=== PATIENT | female | born 1995 | race Caucasian/White ===

== ENCOUNTER 2021-07-14 10:26 | Emergency (ER) | payer OTHER ==
[2021-07-14 10:54] VITALS: BP 183/73; PULSE 93; RESP 24; TEMP 98.8
--- NOTE | 2021-07-14 11:03 | ED ---
URI HPI - General Chief Complaint: Upper Respiratory Infection Stated Complaint: SOB Time Seen by Provider: 07/14/21 10:56 Source: patient, RN notes reviewed Mode of arrival: ambulatory Limitations: no limitations - History of Present Illness Initial Comments: Patient is 26-year-old female presenting to the ED for cough and shortness of breath. Patient states that symptoms started with increased cough, congestion, fever and chills. Patient reports no nausea but vomiting with coughing spells. She has positive past medical history of asthma and normally is well controlled. 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 Patient reports not receiving COVID-19 vaccine, no reported COVID-19 positive test in the past. - Related Data Home Medications Medication Instructions Recorded Confirmed Albuterol Inhaler [Ventolin Hfa 2 puff INHALATION RT-Q6H PRN 07/14/21 07/14/21 Inhaler] Dextroamphetamine/Amphetamine 10 mg PO DAILY 07/14/21 07/14/21 [Adderall Xr] Fluticasone Propionate [Flovent 1 puff INHALATION RT-Q12H 07/14/21 07/14/21 Hfa 110 mcg] Allergies Allergy/AdvReac Type Severity Reaction Status Date / Time Penicillins Allergy Unknown Verified 07/14/21 12:12 Review of Systems ROS Statement: Those systems with pertinent positive or pertinent negative responses have been documented in the HPI. ROS Other: All systems not noted in ROS Statement are negative. Past Medical History Past Medical History: Asthma History of Any Multi-Drug Resistant Organisms: None Reported Past Surgical History: No Surgical Hx Reported Past Psychological History: ADD/ADHD Smoking Status: Former smoker Past Alcohol Use History: None Reported Past Drug Use History: None Reported General Exam Limitations: no limitations General appearance: alert, in no apparent distress Respiratory exam: Present: normal lung sounds bilaterally. Absent: respiratory distress, wheezes, rales, rhonchi, stridor Cardiovascular Exam: Present: regular rate, normal rhythm, normal heart sounds. Absent: systolic murmur, diastolic murmur, rubs, gallop, clicks Neurological exam: Present: alert, oriented X3 Skin exam: Present: warm, dry, intact, normal color. Absent: rash Course Vital Signs 07/14/21 10:51 Temperature 98.8 F Pulse Rate 93 Respiratory 24 Rate Blood Pressure 183/73 O2 Sat by Pulse 98 Oximetry Medical Decision Making - Medical Decision Making X-ray, COVID-19 testing was performed which is negative. Patient is a viral URI with mild asthma symptoms. Patient we discharged him stable condition. - Lab Data Lab Results 07/14/21 Range/Units 12:53 Coronavirus (PCR) Not Detected (Not Detectd) Disposition Clinical Impression: Acute upper respiratory infection, Asthmatic bronchitis Disposition: HOME SELF-CARE Condition: Stable Instructions (If sedation given, give patient instructions): Upper Respiratory Infection (ED) Additional Instructions: Please return to the Emergency Department if symptoms worsen or any other concerns. Is patient prescribed a controlled substance at d/c from ED?: No Referrals: Nonstaff,Physician [REFERRING] - 1-2 days Time of Disposition: 13:29
--- NOTE | 2021-07-14 11:50 | XR ---
EXAMINATION TYPE: XR chest 2V DATE OF EXAM: 07/14/2021 COMPARISON: NONE HISTORY: Shortness of breath. TECHNIQUE: Frontal and lateral views of the chest are obtained. FINDINGS: There is no focal air space opacity, pleural effusion, or pneumothorax seen. The cardiac silhouette size is within normal limits. Slight underlying scoliotic curvature. IMPRESSION: No acute cardiopulmonary process.
== END 2021-07-14 13:35 | disposition home or self-care (01) ==
LOC: EC 10:26
DX: J06.9 Acute upper respiratory infection, unspecified (principal); J45.909 Unspecified asthma, uncomplicated; Z87.891 Personal history of nicotine dependence; Z20.822 Contact with and (suspected) exposure to COVID-19; Z88.0 Allergy status to penicillin; Z79.51 Long term (current) use of inhaled steroids
CPT/HCPCS: 71046; 87635; 99285

== ENCOUNTER → 2021-08-25 | Outpatient (CLI) | payer OTHER ==
[2021-08-25 16:43] LABS: Basophils % (A) 1 %; Eosinophils # (A) 0.2 k/uL (0-0.7); Eosinophils % (A) 3 %; HGB 12.9 gm/dL (11.4-16.0); Lymphocytes # (A) 1.4 k/uL (1.0-4.8); Lymphocytes % (A) 28 %; MCH 26.6 pg (25.0-35.0); MCHC 32.3 g/dL (31.0-37.0); MCV 82.3 fL (80.0-100.0); Mean Platelet Volume 6.8; Monocytes # (A) 0.5 k/uL (0-1.0); Monocytes % (A) 10 %; Neutrophils # (A) 2.8 k/uL (1.3-7.7); Neutrophils % (A) 56 %; Platelet Count 381 k/uL (150-450); RBC 4.87 m/uL (3.80-5.40); RDW 13.9 % (11.5-15.5)
[2021-08-25 16:53] LABS: ALT 43 U/L (4-34); AST 32 U/L (14-36); African American GFR (CKD) >90 (>60 ml/min/1.73 sqM); Albumin 4.1 g/dL (3.5-5.0); Albumin/Globulin Ratio 1.2; Alkaline Phosphatase 89 U/L (38-126); Anion Gap 12 mmol/L; Blood Urea Nitrogen 10 mg/dL (7-17); Calcium 9.2 mg/dL (8.4-10.2); Carbon Dioxide 25 mmol/L (22-30); Chloride 102 mmol/L (98-107); Globulin 3.4 g/dL; Glucose 111 mg/dL (74-99); Non-African American GFR(CKD) >90 (>60 ml/min/1.73 sqM); Potassium 4.1 mmol/L (3.5-5.1); Sodium 139 mmol/L (137-145); Total Bilirubin 0.2 mg/dL (0.2-1.3); Total Protein 7.5 g/dL (6.3-8.2)
== END | disposition home or self-care (01) ==
LOC: LABWHC1 16:14
PROVIDERS: ATTEND Nurse Practitioner Adult Health
DX: R06.00 Dyspnea, unspecified (principal); R05.9 Cough, unspecified
CPT/HCPCS: 36415; 80053; 83880; 84484; 85025; 85379

== ENCOUNTER → 2021-09-04 | Outpatient (CLI) | payer OTHER ==
[~2021-09-04] MED LIST: BAMLANIVIMAB (EUA) 700 MG, ETESEVIMAB (EUA) 1,400 MG in SODIUM CHLORIDE 0.9% 50 ML IVPB ONE; SODIUM CHLORIDE 0.9% 50 ML IVPB ONE; SODIUM CHLORIDE 0.9% 500 ML 500 ML in EMPTY BAG 1 BAG IV PRN
[2021-09-04 08:21] VITALS: RESP 16; TEMP 98.3
[2021-09-04 09:23] VITALS: BP 122/82; PULSE 85
== END | disposition home or self-care (01) ==
LOC: PROCWHC3 08:01
PROVIDERS: ATTEND Family Medicine
DX: U07.1 COVID-19 (principal)
CPT/HCPCS: 96360; J3490; M0245

== ENCOUNTER 2023-03-09 17:00 | Inpatient (IN) | payer BC ==
[2023-03-09] MEDS ORDERED: OXYTOCIN 30 UNITS/500 ML NS 30 UNIT in SALINE 1 500ML.BAG IV SCH (17:30)
[2023-03-09 17:44] LABS: Glucose,Whole Blood 97 mg/dL (70-110)
[2023-03-09 17:55] LABS: Basophils % (A) 0 %; Eosinophils # (A) 0.1 k/uL (0-0.7); Eosinophils % (A) 1 %; HCT 32.3 % (34.0-46.0); HGB 10.6 gm/dL (11.4-16.0); Lymphocytes # (A) 2.3 k/uL (1.0-4.8); Lymphocytes % (A) 22 %; MCH 24.8 pg (25.0-35.0); MCHC 32.9 g/dL (31.0-37.0); MCV 75.5 fL (80.0-100.0); Mean Platelet Volume 7.2; Microcytosis Slight; Monocytes # (A) 0.5 k/uL (0-1.0); Monocytes % (A) 5 %; Neutrophils # (A) 7.4 k/uL (1.3-7.7); Neutrophils % (A) 71 %; Platelet Count 345 k/uL (150-450); RBC 4.27 m/uL (3.80-5.40); RDW 15.5 % (11.5-15.5); WBC 10.4 k/uL (3.8-10.6)
[2023-03-09] MEDS: LACTATED RINGERS 1,000 ML IV SCH (18:02)
[2023-03-09 21:54] LABS: Glucose,Whole Blood 102 mg/dL (70-110)
[2023-03-09] MEDS: NALBUPHINE 10 MG/ML (10 ML MDV) IV PRN (23:03)
[2023-03-10] MEDS: LACTATED RINGERS 1,000 ML IV SCH ×4 (00:07→20:54)
[2023-03-10 01:32] LABS: Glucose,Whole Blood 115 mg/dL (70-110)
[2023-03-10] MEDS: NALBUPHINE 10 MG/ML (10 ML MDV) IV PRN (04:56)
[2023-03-10 05:47] LABS: Glucose,Whole Blood 96 mg/dL (70-110)
[2023-03-10] MEDS ORDERED: ROPIVACAINE 5 MG/ML 20 ML AMPULE ONE (07:25)
[2023-03-10] MEDS ORDERED: SODIUM CHLORIDE 0.9% 100 ML BAG ONE (07:25)
[2023-03-10] MEDS ORDERED: fentaNYL (PF) 50 MCG/ML 5 ML AMP ONE (07:25)
[2023-03-10 09:04] LABS: Glucose,Whole Blood 94 mg/dL (70-110)
[2023-03-10 11:03] LABS: Glucose,Whole Blood 83 mg/dL (70-110)
[2023-03-10] MEDS ORDERED: ROPIVACAINE 225 MG, fentaNYL (PF). 450 MCG in SODIUM CHLORIDE 0.9% 171 ML EPIDURAL ONE (11:06)
[2023-03-10 13:07] LABS: Glucose,Whole Blood 87 mg/dL (70-110)
[2023-03-10 16:11] LABS: Glucose,Whole Blood 101 mg/dL (70-110)
[2023-03-10] MEDS ORDERED: diphenhydrAMINE 50 MG/ML 1 ML VIAL IVP STA (18:29)
[2023-03-10 18:55] LABS: Glucose,Whole Blood 105 mg/dL (70-110)
[2023-03-10] MEDS ORDERED: hydrALAZINE HCL 20 MG/ML 1 ML VIAL IVP STA ×2 (20:50→23:05)
[2023-03-10] MEDS ORDERED: ceFAZolin 3 GM in SODIUM CHLORIDE 0.9% 100 ML IVPB ONE (20:50)
[2023-03-10] MEDS ORDERED: AZITHROMYCIN 500 MG in SODIUM CHLORIDE 0.9% 250 ML IVPB STA (20:52)
[2023-03-10] MEDS ORDERED: WATER FOR INJECTION IVPB ONE (21:00)
[2023-03-10] MEDS ORDERED: CALCIUM GLUCONATE 1 GM/10 ML VIAL IV PRN (21:00)
[2023-03-10] MEDS ORDERED: MAGNESIUM SULFATE WATER PMX IVPB ONE (21:00)
[2023-03-10] MEDS ORDERED: CITRIC ACID-SODIUM CITRATE 15 ML CUP PO ONE (21:25)
[2023-03-10] MEDS ORDERED: PROPOFOL 10 MG/ML 20 ML VIAL IV ONE (21:41)
[2023-03-10] MEDS ORDERED: HYDROmorphone (PF) 1 MG/ML ONE (21:41)
[2023-03-10] MEDS ORDERED: DEXAMETHASONE SOD PHOSPHATE 4 MG/ML 1 ML VIAL ONE (21:41)
[2023-03-10] MEDS ORDERED: ONDANSETRON 4 MG/2 ML VIAL ONE (21:41)
[2023-03-10] MEDS ORDERED: MORPHINE SULFATE (PF) 0.3 MG/0.3 ML SYR ONE (21:41)
[2023-03-10] MEDS ORDERED: KETOROLAC 15 MG/ML 1 ML VIAL ONE (21:41)
[2023-03-10] MEDS ORDERED: OXYTOCIN 30 UNITS/500 ML NS BAG IV ONE (21:41)
[2023-03-10 22:18] LABS: ALT 20 U/L (4-34); AST 29 U/L (14-36); African American GFR (CKD) 67 (>60 ml/min/1.73 sqM); Blood Urea Nitrogen 17 mg/dL (7-17); LDH 236 U/L (120-246); Non-African American GFR(CKD) 58 (>60 ml/min/1.73 sqM); Uric Acid 5.6 mg/dL (3.7-7.4)
[2023-03-10] MEDS ORDERED: NALOXONE 0.4 MG/ML 1 ML VIAL IV PRN ×2 (22:21→22:28)
[2023-03-10] MEDS ORDERED: SIMETHICONE 80 MG CHEWABLE PO PRN (22:28)
[2023-03-10] MEDS ORDERED: ONDANSETRON 4 MG/2 ML VIAL IVP PRN (22:28)
[2023-03-10] MEDS ORDERED: METOCLOPRAMIDE 5 MG/ML 2 ML VIAL IVP PRN (22:28)
[2023-03-10] MEDS ORDERED: diphenhydrAMINE 25 MG CAP PO PRN (22:28)
[2023-03-10] MEDS ORDERED: ZOLPIDEM 5 MG TAB PO PRN (22:28)
[2023-03-10] MEDS ORDERED: diphenhydrAMINE 50 MG CAP PO PRN (22:28)
[2023-03-10] MEDS ORDERED: diphenhydrAMINE 50 MG/ML 1 ML VIAL IVP PRN ×2 (22:28)
[2023-03-10] MEDS ORDERED: OXYTOCIN 30 UNITS/500 ML NS 30 UNIT in SALINE 1 500ML.BAG IV SCH (22:30)
--- NOTE | 2023-03-10 22:39 | P.OP ---
Date of Procedure: 03/10/23 Preoperative Diagnosis: 1. Term IUP at 38 weeks and 6 days 2. Gestational Diabetes on Insulin 3. Pre-eclampsia with severe features 4. Failure to progress 5. Maternal request Postoperative Diagnosis: 1. Term IUP at 38 weeks and 6 days 2. Gestational Diabetes on Insulin 3. Pre-eclampsia with severe features 4. Failure to progress 5. Maternal request 6. Occiput Posterior Presentation Procedure(s) Performed: Primary Lower Transverse Section Implants: None Anesthesia: epidural Surgeon: Chandni Lloyd Media Consultant #1: Spring Longo Estimated Blood Loss (ml): 1,139 IV fluids (ml): 1,000 Urine output (ml): 100 Pathology: none sent Condition: stable Disposition: floor Indications for Procedure: This is a 27 year old at 38 weeks and 6 days being medically induced for GDMA2 on insulin. Cooks catheter was placed and oxytocin was started. After the cooks catheter was removed, the patient was dilated to 3 centimeters and spontaneous rupture of membranes occurred. The patient received epidural anesthesia per her request. The patient made change to 6 centimeters at which time the patient had failure to progress over 4 hours despite adequate contracti ons. The patient began having severe-range blood pressures and pre-eclampsia with severe features was diagnosed. section was recommended for maternal and well-being. The risks of section were also discussed including the risk of bleeding, infection, and damage to surrounding structures including bladder/bowel/ureters. The patient understands these risks and desires to proceed. Operative Findings: Viable female infant in direct occiput posterior presentation, apgars 8/9, weight 7#13oz. Normal uterus, bilateral fallopian tubes and ovaries. Description of Procedure: The patient was taken to the operating room where spinal anesthesia was found to be adequate. 3 grams of Ancef and 500mg of Azithromycin were given for infection prophylaxis. She was prepared vaginally and abdominally. She was draped in the dorsal supine position with a leftward tilt. A Pfannenstiel skin incision was made with the scalpel. The incision was carried down to the fascia. The fascia was incised and extended laterally with Anton scissors. The superior aspect of the fascia was grasped with Sanna clamps. The underlying rectus muscle was di ssected off sharply with Anton scissors. In a similar fashion, the inferior aspect of the fascia was elevated with Sanna clamps and the rectus muscle and pyramidalis were dissected off. Excellent hemostasis was achieved with the bovie. The rectus muscle was in the midline down to the level of the pubic symphysis. Pre-peritoneal fatty tissue was bluntly dissected to expose the peritoneum. The peritoneum was found to be free of adherent bowel and entered sharply with Anton scissors. The peritoneal incision was extended superiorly and inferiorly to the bladder reflection with good visualization of the bladder. The bladder blade was inserted and vesicouterine peritoneum was identified. Intraabdominal survey revealed scant, clear peritoneal fluid and the thinned-out lower uterine segment. The vesicouterine peritoneum was opened with scissors and the bladder flap was developed. The bladder blade was repositioned to keep the bladder out of the operative field. The lower uterine segment was incised with a scalpel. Lightly meconium stained amniotic fluid was noted. The uterine incision was extended bluntly with lateral and upward traction. The fetus was in direct occiput posterior position. The head was elevated out of the pelvis with special attention paid to avoid using the uterine incision as a fulcrum. Gentle fundal pressure was applied once the head was brought into the incision. The infant was delivered with no difficulty. The mouth and nose were suctioned with a bulb. The cord was clamped and cut. The was handed off to the teachers' aide. IV oxytocin was initiated to facilitate uterine contractions. The placenta was delivered intact with manual massage of uterine fundus. The uterus was then exteriorized and the inside of the uterus was gently wiped with a lap sponge to assure complete removal of placental membranes. The uterine incision was closed with a 0-Polysorb suture in a running locked fashion. A second imbricating layer with 0-Polysorb was placed. Additional figure of eight sutures were placed for hemostasis. The ovaries and tubes were found to be normal. The uterus, tubes, and ovaries were then gently returned to the abdominal cavity. The blood clots and fluid were wiped out of the abdomen and pelvis with moist laparotomy sponges. The uterine incision was reinspected and excellent hemostasis was noted. The fascial layer was closed with a 0-Vicryl suture. The subcutaneous layer was reapproximated with 2-0 Plain Gut. The skin was closed with maribel. The patient tolerated the procedure well. All the counts were correct times two. The patient was taken to the recovery room in a stable condition.
[2023-03-10 23:04] LABS: Basophils % (A) 0 %; Eosinophils # (A) 0.1 k/uL (0-0.7); Eosinophils % (A) 1 %; HCT 36.1 % (34.0-46.0); HGB 11.6 gm/dL (11.4-16.0); Lymphocytes # (A) 1.3 k/uL (1.0-4.8); Lymphocytes % (A) 7 %; MCH 24.2 pg (25.0-35.0); MCHC 32.2 g/dL (31.0-37.0); MCV 75.4 fL (80.0-100.0); Mean Platelet Volume 9.6; Microcytosis Slight; Monocytes % (A) 5 %; Neutrophils # (A) 15.3 k/uL (1.3-7.7); Neutrophils % (A) 86 %; Platelet Count 302 k/uL (150-450); RBC 4.78 m/uL (3.80-5.40); RDW 15.4 % (11.5-15.5); WBC 17.8 k/uL (3.8-10.6)
[2023-03-10] MEDS: MAGNESIUM SULFATE-WATER PMX 20 GM in WATER FOR INJECTION 1 500ML.BAG IV SCH (23:56)
[2023-03-11] MEDS: LACTATED RINGERS 1,000 ML IV SCH ×4 (02:32→15:32)
[2023-03-11 02:50] LABS: Glucose,Whole Blood 129 mg/dL (70-110)
[2023-03-11 03:40] LABS: Creatinine,Urine Random 53.8 mg/dL; Protein/Creatinine Ratio,Urine 0.725
[2023-03-11 03:42] LABS: Appearance,Urine Clear (Clear); Bilirubin,Urine Negative (Negative); Blood,Urine Moderate (Negative); Color,Urine Light Yellow; Glucose,Urine (UA) Negative (Negative); Ketones,Urine 1+ (Negative); Leukocyte Esterase,Urine Negative (Negative); Mucus,Urine Rare /hpf; Nitrite,Urine Negative (Negative); Protein,Urine Trace (Negative); RBC,Urine 85 /hpf (0-5); Specific Gravity,Urine 1.012 (1.001-1.035); Squamous Epithelial Cell,Urine <1 /hpf (0-4); Urobilinogen,Urine <2.0 mg/dL (<2.0); WBC,Urine 1 /hpf (0-5)
[2023-03-11] MEDS: ACETAMINOPHEN TAB 500 MG TAB PO SCH ×3 (05:41→13:26)
[2023-03-11] MEDS: KETOROLAC 15 MG/ML 1 ML VIAL IVP SCH ×3 (05:48→18:19)
[2023-03-11 07:14] LABS: Basophils # (A) 0.1 k/uL (0-0.2); Basophils % (A) 0 %; Eosinophils % (A) 0 %; Lymphocytes # (A) 1.2 k/uL (1.0-4.8); Lymphocytes % (A) 7 %; MCH 24.8 pg (25.0-35.0); MCV 75.1 fL (80.0-100.0); Mean Platelet Volume 7.5; Microcytosis Slight; Monocytes # (A) 0.7 k/uL (0-1.0); Monocytes % (A) 4 %; Neutrophils # (A) 15.5 k/uL (1.3-7.7); Neutrophils % (A) 88 %; Platelet Count 314 k/uL (150-450); RBC 3.99 m/uL (3.80-5.40); RDW 15.7 % (11.5-15.5); WBC 17.5 k/uL (3.8-10.6)
[2023-03-11 07:21] LABS: HGB 9.9 gm/dL (11.4-16.0)
--- NOTE | 2023-03-11 08:19 | P.PN ---
Progress Note - Text Progress Note Date: 03/11/23 Postoperative day 1 status post section under epidural anesthesia and epidural Duramorph for postoperative analgesia.The patient is doing well, there is mild generalized skin itching. There are no other anesthesia related complications. The patient denies any paresthesia or weakness in the lower extremities. Patient denies any headache. Further management as per the patient primary team.
[2023-03-11] MEDS: SENNOSIDES-DOCUSATE SODIUM 1 EACH TAB PO SCH (08:31)
[2023-03-11] MEDS: LABETALOL 200 MG TAB PO SCH ×2 (08:31→21:41)
[2023-03-11] MEDS: MAGNESIUM SULFATE-WATER PMX 20 GM in WATER FOR INJECTION 1 500ML.BAG IV SCH ×2 (08:32→18:18)
--- NOTE | 2023-03-11 08:43 | P.PNOBGPC ---
Subjective - Subjective Principal diagnosis: s/p primary section 2/2 failure to progress and maternal request Interval history: The patient is doing well this morning and had no acute events overnight. She has no complaints this morning. She reports minimal lochia, passing flatus, fausto es nausea or vomiting. She is on magnesium sulfate for preeclapmsia with severe features and labetalol 200 BID was started overnight. She denies headache, visual disturbances, and RUQ pain. She denies chest pain, shortness of breathing, fevers, or chills overnight. She denies pain or swelling in the legs. Patient reports: Reports appetite normal, Reports pain well controlled : doing well, nursing well Objective - Vital Signs Latest vital signs: Vital Signs Temp Pulse Resp BP Pulse Ox 03/11/23 06:30 85 16 138/83 98 03/11/23 05:30 85 16 139/64 98 03/11/23 05:00 16 03/11/23 04:30 81 16 131/68 03/11/23 03:30 85 16 132/62 03/11/23 03:00 16 03/11/23 02:30 97.2 F L 95 16 134/68 03/11/23 01:38 94 16 132/63 03/11/23 01:21 16 03/11/23 00:31 97 16 136/84 03/11/23 00:01 107 H 16 141/65 03/10/23 23:31 91 16 147/67 97 03/10/23 23:16 90 16 146/68 98 03/10/23 23:01 100 16 175/99 99 03/10/23 23:00 101 H 16 163/87 99 03/10/23 22:46 98.1 F 80 16 177/95 99 03/10/23 22:31 98.3 F 103 H 16 169/95 99 03/10/23 22:21 16 Intake and Output 03/10/23 03/11/23 03/11/23 22:59 06:59 14:59 Intake Total 1051.867 430 Output Total 7141 1860 Balance -187.133 -1860 430 Intake: IV 1000 Intake, IV Titration 51.867 430 Amount Magnesium Sulfate-Water 430 Pmx 20 gm In Water For Injection 1 500ml.bag @ 2 GM/HR 50 mls/hr IV .Q10H [facility] Rx#:[id number] Oxytocin 30 Units/500 ml 51.867 Ns 30 unit In Saline 1 500ml.bag @ Per Protocol IV .Q0M [facility] Rx#:[id number] Output: Urine 100 1850 Estimated Blood Loss 1139 Output, Quantitative 10 Blood Loss Other: Voiding Method Indwelling Catheter Indwelling Catheter - Exam Extremities: Present: normal Abdomen: Present: normal appearance, soft Incision: Present: dressed Uterus: Present: normal, firm - Labs Labs: Abnormal Lab Results - Last 24 Hours (Table) 03/10/23 03/10/23 03/10/23 Range/Units 21:21 21:21 21:21 WBC 17.8 H (3.8-10.6) k/uL Hgb (11.4-16.0) gm/dL Hct (34.0-46.0) % MCV 75.4 L (80.0-100.0) fL MCH 24.2 L (25.0-35.0) pg RDW (11.5-15.5) % Neutrophils # 15.3 H (1.3-7.7) k/uL Fibrinogen 608 H (200-500) mg/dL Creatinine 1.27 H (0.52-1.04) mg/dL POC Glucose (mg/dL) (70-110) mg/dL Urine Protein (Negative) Urine Ketones (Negative) Urine Blood (Negative) Urine RBC (0-5) /hpf Urine Mucus (None) /hpf 03/11/23 03/11/23 03/11/23 Range/Units 02:00 02:48 06:33 WBC 17.5 H (3.8-10.6) k/uL Hgb 9.9 L D (11.4-16.0) gm/dL Hct 30.0 L (34.0-46.0) % MCV 75.1 L (80.0-100.0) fL MCH 24.8 L (25.0-35.0) pg RDW 15.7 H (11.5-15.5) % Neutrophils # 15.5 H (1.3-7.7) k/uL Fibrinogen (200-500) mg/dL Creatinine (0.52-1.04) mg/dL POC Glucose (mg/dL) 129 H (70-110) mg/dL Urine Protein Trace H (Negative) Urine Ketones 1+ H (Negative) Urine Blood Moderate H (Negative) Urine RBC 85 H (0-5) /hpf Urine Mucus Rare H (None) /hpf Assessment and Plan Assessment: 27 year old now POD#1 s/p 1LTCS 2/2 failure to progress and maternal request after medical induction of labor for GDMA2, intrapartum course complica jadon by new-onset preE with severe features Plan: 1. Postoperative. Patient meeting postoperative milestones appropriately, continue to monitor. 2. GDMA2. POC glucose within normal limits. Can stop POCs. Needs 2h GTT at 6 weeks . 3. PreE w/ SF. Had 2 pushes of 10mg of IV hydralazine immediately before and then after delivery. Labetalol 200mg BID started overnight. Receiving 24 hours of Mag Sulfate for seizure ppx. 4. Viable female infant. Doing well at bedside.
[2023-03-11] MEDS: ENOXAPARIN 40 MG/0.4 ML SYRINGE SQ SCH (12:37)
[2023-03-11] MEDS ORDERED: KETOROLAC 15 MG/ML 1 ML VIAL ONE (21:41)
[2023-03-11] MEDS ORDERED: MORPHINE SULFATE (PF) 0.3 MG/0.3 ML SYR ONE (21:41)
[2023-03-11] MEDS ORDERED: OXYTOCIN 30 UNITS/500 ML NS BAG IV ONE (21:41)
[2023-03-11] MEDS ORDERED: PROPOFOL 10 MG/ML 20 ML VIAL IV ONE (21:41)
[2023-03-11] MEDS ORDERED: DEXAMETHASONE SOD PHOSPHATE 4 MG/ML 1 ML VIAL ONE (21:41)
[2023-03-11] MEDS ORDERED: HYDROmorphone (PF) 1 MG/ML ONE (21:41)
[2023-03-11] MEDS ORDERED: ONDANSETRON 4 MG/2 ML VIAL ONE (21:41)
[2023-03-11] MEDS ORDERED: LABETALOL 200 MG TAB PO SCH (23:09)
[2023-03-12] MEDS: KETOROLAC 15 MG/ML 1 ML VIAL IVP SCH ×3 (00:34→13:22)
[2023-03-12] MEDS: ACETAMINOPHEN TAB 500 MG TAB PO SCH ×5 (01:46→21:52)
[2023-03-12] MEDS: LACTATED RINGERS 1,000 ML IV SCH ×2 (01:47→06:53)
[2023-03-12] MEDS: SENNOSIDES-DOCUSATE SODIUM 1 EACH TAB PO SCH ×4 (01:47→21:52)
[2023-03-12 03:51] VITALS: RESP 16
[2023-03-12 06:19] LABS: Basophils % (A) 0 %; Eosinophils # (A) 0.1 k/uL (0-0.7); Eosinophils % (A) 0 %; HCT 26.8 % (34.0-46.0); HGB 8.5 gm/dL (11.4-16.0); Hypochromasia Slight; Lymphocytes # (A) 1.6 k/uL (1.0-4.8); Lymphocytes % (A) 13 %; MCH 23.8 pg (25.0-35.0); MCHC 31.8 g/dL (31.0-37.0); MCV 74.7 fL (80.0-100.0); Mean Platelet Volume 7.2; Microcytosis Slight; Monocytes # (A) 0.5 k/uL (0-1.0); Monocytes % (A) 4 %; Neutrophils # (A) 9.7 k/uL (1.3-7.7); Neutrophils % (A) 81 %; Platelet Count 282 k/uL (150-450); RBC 3.59 m/uL (3.80-5.40); RDW 15.8 % (11.5-15.5); WBC 11.9 k/uL (3.8-10.6)
[2023-03-12 06:38] LABS: ALT 15 U/L (4-34); AST 20 U/L (14-36); African American GFR (CKD) >90 (>60 ml/min/1.73 sqM); Blood Urea Nitrogen 11 mg/dL (7-17); Magnesium 3.9 mg/dL (1.6-2.3); Non-African American GFR(CKD) >90 (>60 ml/min/1.73 sqM); Uric Acid 5.9 mg/dL (3.7-7.4)
[2023-03-12 06:57] LABS: LDH 269 U/L (120-246)
[2023-03-12] MEDS: MAGNESIUM SULFATE-WATER PMX 20 GM in WATER FOR INJECTION 1 500ML.BAG IV SCH (07:27)
[2023-03-12] MEDS: LABETALOL 200 MG TAB PO SCH ×2 (10:31→21:31)
--- NOTE | 2023-03-12 11:02 | P.PNOBGPC ---
Subjective - Subjective Principal diagnosis: Postop day 2, primary Interval history: Patient is doing well this morning. She is ambulating and voiding without difficulty. She is tolerating a regular diet. Her pain is moderately well controlled. She is bottle feeding. Her lochia is minimal to moderate. Magnesium was discontinued yesterday, labs were drawn this morning and normal. Patient denied signs or symptoms of preeclampsia this morning. Blood pressures remained normal. Patient reports: Reports appetite normal, Reports voiding normally, Reports ambulating normally, Reports other (pain is moderately well controlled ) : doing well, bottle feeding Objective - Vital Signs Latest vital signs: Vital Signs Temp Pulse Resp BP Pulse Ox 03/12/23 05:00 16 03/12/23 03:52 96.8 F L 104 H 16 122/69 97 03/12/23 03:00 16 97 03/12/23 01:00 18 03/12/23 00:00 98.3 F 97 16 133/60 03/11/23 23:00 90 16 132/63 03/11/23 22:00 97 16 135/63 03/11/23 21:00 108 H 16 138/65 03/11/23 20:00 90 16 131/60 03/11/23 19:00 96 16 122/56 03/11/23 18:00 112 H 16 139/62 97 03/11/23 17:00 100 16 137/63 97 03/11/23 16:00 98.3 F 94 16 139/64 98 03/11/23 15:00 89 16 130/67 97 03/11/23 14:00 93 16 139/63 97 03/11/23 13:00 81 16 133/60 97 03/11/23 12:00 98.3 F 92 16 121/58 98 03/11/23 11:00 99 16 130/64 97 Intake and Output 03/11/23 03/12/23 03/12/23 22:59 06:59 14:59 Intake Total 488.333 Output Total 650 3550 Balance -161.667 -3550 Intake: Intake, IV Titration 488.333 Amount Magnesium Sulfate-Water 488.333 Pmx 20 gm In Water For Injection 1 500ml.bag @ 2 GM/HR 50 mls/hr IV .Q10H [facility] Rx#:[id number] Output: Urine 650 3550 Uretheral ([place]) 1200 Other: Voiding Method Indwelling Catheter # Voids 0 1 - Exam Extremities: Present: normal, edema Abdomen: Present: normal appearance, soft Incision: Present: normal, dry, intact Uterus: Present: normal, firm - Labs Labs: Abnormal Lab Results - Last 24 Hours (Table) 03/12/23 03/12/23 Range/Units 05:30 05:30 WBC 11.9 H (3.8-10.6) k/uL RBC 3.59 L (3.80-5.40) m/uL Hgb 8.5 L (11.4-16.0) gm/dL Hct 26.8 L (34.0-46.0) % MCV 74.7 L (80.0-100.0) fL MCH 23.8 L (25.0-35.0) pg RDW 15.8 H (11.5-15.5) % Neutrophils # 9.7 H (1.3-7.7) k/uL Magnesium 3.9 H (1.6-2.3) mg/dL Lactate Dehydrogenase 269 H (120-246) U/L Assessment and Plan (1) Term Current Visit: Yes Status: Acute Code(s): Z34.90 - ENCNTR FOR SUPRVSN OF NORMAL , UNSP, UNSP TRIMESTER SNOMED Code(s): 07544755 (2) Arrest of dilation, delivered, current hospitalization Current Visit: Yes Status: Acute Code(s): O62.1 - SECONDARY UTERINE INERTIA SNOMED Code(s): 40598300 (3) Delivery by section Current Visit: Yes Status: Acute Code(s): KAZ5323 - SNOMED Code(s): 385766094 (4) Gestational diabetes mellitus Current Visit: Yes Status: Acute Code(s): O24.419 - GESTATIONAL DIABETES MELLITUS IN , UNSP CONTROL SNOMED Code(s): 18077542 (5) Pre-eclampsia Current Visit: Yes Status: Acute Code(s): O14.90 - UNSPECIFIED PRE- ECLAMPSIA, UNSPECIFIED TRIMESTER SNOMED Code(s): 871965470 Plan: Patient is doing well postoperatively. Preeclampsia labs are reviewed with patient today. Normal in nature. Blood pressures remained normal. We'll continue to monitor blood pressures today and consider discharge home tomorrow.
[2023-03-12] MEDS: IBUPROFEN 600 MG TAB PO SCH ×2 (13:44→19:57)
[2023-03-12] MEDS: ENOXAPARIN 40 MG/0.4 ML SYRINGE SQ SCH (13:45)
[2023-03-13] MEDS: IBUPROFEN 600 MG TAB PO SCH (03:04)
[2023-03-13] MEDS: ACETAMINOPHEN TAB 500 MG TAB PO SCH ×2 (04:57→08:29)
[2023-03-13] MEDS: SENNOSIDES-DOCUSATE SODIUM 1 EACH TAB PO SCH (08:30)
[2023-03-13] MEDS: LABETALOL 200 MG TAB PO SCH (08:35)
[2023-03-13 09:00] VITALS: BP 135/85; PULSE 73; TEMP 98.1
--- NOTE | 2023-03-13 10:20 | P.DS ---
Providers Date of admission: 03/09/23 17:00 Expected date of discharge: 03/13/23 Attending physician: Chandni Lloyd MD Primary care physician: Stated None - Discharge Diagnosis(es) (1) Term Current Visit: Yes Status: Acute (2) Arrest of dilation, delivered, current hospitalization Current Visit: Yes Status: Acute (3) Delivery by section Current Visit: Yes Status: Acute (4) Gestational diabetes mellitus Current Visit: Yes Status: Acute (5) Pre-eclampsia Current Visit: Yes Status: Acute Hospital Course: This is a 27 yo at 38 weeks of gestation that presented for induction of labor secondary to gestational diabetes A2 on insulin. Patient had cooks catheter placed and was begun on oxytocin. Fuchs catheter was removed patient was noted be dilated to 3 cm and centimeters rupture of membranes had occurred. Patient did receive an epidural progressed request. At epidural was placed without difficulty by the anesthesia department. Patient did make cervical change to 6 cm at which time patient had failure to progress over 4 hours despite adequate contractions. Patient began having severe range blood pressures and preeclampsia with severe features was diagnosed. section was recommended given elevated blood pressures and arrest of dilation. Patient was taken for primary low transverse section, this was completed without difficulty. For full details on the please see the operative report. Patient delivered a viable female infant in occiput posterior presentation, weight of 7 lbs. 13 oz., Apgars of 8 and 9 at one and 5 minutes respectively. After delivery patient was placed on magnesium infusion, blood pressures have remained stable on labetalol 200 mg twice daily. On this postoperative day #3 patient is ambulating and voiding without difficulty. She is tolerating a regular diet without nausea or vomiting. States her pain is well-controlled with Motrin Tylenol and Oxy IR. Patient Is Bottle Feeding but States She Is Going to Start Pumping. She states her lochia is minimal. She denies concerns and would like discharge home. Patient Condition at Discharge: Good Plan - Discharge Summary New Discharge Prescriptions: No Action Albuterol Inhaler [Ventolin Hfa Inhaler] 2 puff INHALATION RT-Q6H PRN PRN Reason: Shortness Of Breath Insulin Aspart [NovoLOG Flexpen] 10 units SQ AC-SUPPER Insulin NPH Hum/Reg Insulin Hm [Novolin 70-30 Flexpen] 25 units SQ HS Discharge Medication List Albuterol Inhaler [Ventolin Hfa Inhaler] 2 puff INHALATION RT-Q6H PRN 07/14/21 [History] Insulin Aspart [NovoLOG Flexpen] 10 units SQ AC-SUPPER 03/09/23 [History] Insulin NPH Hum/Reg Insulin Hm [Novolin 70-30 Flexpen] 25 units SQ HS 03/09/23 [History] Follow up Appointment(s)/Referral(s): Chandni Lloyd MD [STAFF PHYSICIAN] - 2 Weeks Patient Instructions/Handouts: (DC), (GEN) Discharge Disposition: HOME SELF-CARE
== END 2023-03-13 12:30 | disposition home or self-care (01) | DRG 788 ==
LOC: MERGE 17:00 → 4FBP 17:00
PROVIDERS: ADMIT Obstetrics & Gynecology; ATTEND Obstetrics & Gynecology
PROC: 3E033VJ Introduction of Other Hormone into Peripheral Vein, Percutaneous Approach (ICD-10-PCS; principal; 2023-03-10 21:40)
PROC: 10D00Z1 Extraction of Products of Conception, Low, Open Approach (ICD-10-PCS; principal; 2023-03-10 21:40)
DX: O24.424 Gestational diabetes mellitus in childbirth, insulin controlled (principal); O14.14 Severe pre-eclampsia complicating childbirth; O62.0 Primary inadequate contractions; O62.1 Secondary uterine inertia; Z37.0 Single live birth; Z3A.38 38 weeks gestation of pregnancy; Z28.310 Unvaccinated for COVID-19; Z28.21 Immunization not carried out because of patient refusal; Z79.4 Long term (current) use of insulin; Z88.0 Allergy status to penicillin
CPT/HCPCS: 81001; 82565; 82570; 83615; 83735; 84156; 84450; 84460; 84520; 84550; 85025; 85384; 86850; 86900; 86901

== ENCOUNTER → 2024-11-22 | Outpatient (CLI) | payer BC ==
[2024-11-22 15:04] LABS: Basophils # (A) 0.08 X 10*3/uL (0.00-0.10); Basophils % (A) 0.8 %; Eosinophils # (A) 0.05 X 10*3/uL (0.04-0.35); Eosinophils % (A) 0.5 %; HCT 40.6 % (37.2-46.3); HGB 12.6 g/dL (12.0-15.0); Lymphocytes # (A) 3.27 X 10*3/uL (0.90-5.00); Lymphocytes % (A) 31.4 %; MCH 24.8 pg (27.0-32.0); MCV 79.9 FL (80.0-97.0); Mean Platelet Volume 9.5 FL (9.5-12.2); Monocytes % (A) 4.8 %; NRBC Per 100 WBC 0 X 10*3/uL (0.00-0.01); Neutrophils # (A) 6.48 X 10*3/uL (1.80-7.70); Neutrophils % (A) 62.3 %; Platelet Count 406 X 10*3/uL (140-440); RBC 5.08 X 10*6/uL (4.10-5.20); RDW 13.8 % (11.5-14.5)
[2024-11-22 15:07] LABS: Blood Urea Nitrogen 11.6 mg/dL (9.0-27.0); Carbon Dioxide 24.3 mmol/L (21.6-31.8); Chloride 103 mmol/L (96-109); Glucose 101 mg/dL (70-110); Potassium 3.7 mmol/L (3.5-5.5); Sodium 139 mmol/L (135-145)
== END | disposition home or self-care (01) ==
LOC: LABPAT 11:20
PROVIDERS: ATTEND Obstetrics & Gynecology
DX: Z01.812 Encounter for preprocedural laboratory examination (principal); N94.6 Dysmenorrhea, unspecified
CPT/HCPCS: 80051; 82565; 82947; 84520; 85025; 86850; 86900; 86901; 87086

== ENCOUNTER 2024-11-26 05:54 | Day surgery (SDC) | payer BC ==
[2024-11-26] MEDS ORDERED: HYDROmorphone 0.5 MG/0.5 ML SYRINGE IVP PRN (06:22)
[2024-11-26] MEDS ORDERED: LIDOCAINE 1% (10MG/ML) FOR IV START INTRADERMA PRN (06:22)
[2024-11-26] MEDS ORDERED: fentaNYL (PF) 50 MCG/ML 2 ML AMP IVP PRN (06:22)
[2024-11-26] MEDS: IV FLUID CONTINUATION 1,000 ML IV ONE (06:54)
[2024-11-26] MEDS: LACTATED RINGERS 1,000 ML IV SCH (06:54)
[2024-11-26 06:55] LABS: Glucose,Whole Blood 93 mg/dL (70-110)
[2024-11-26] MEDS: MORPHINE SULFATE (PF) 1 MG/ML AMP INTRATHECA ONE (07:06)
[2024-11-26] MEDS: MIDAZOLAM 2 MG/2 ML VIAL IV PRN (07:06)
[2024-11-26] MEDS: fentaNYL (PF) 50 MCG/ML 2 ML AMP INTRATHECA ONE (07:06)
[2024-11-26] MEDS: ONDANSETRON 4 MG/2 ML VIAL IVP ONE (07:21)
[2024-11-26] MEDS: DEXAMETHASONE SOD PHOSPHATE 4 MG/ML 1 ML VIAL IV ONE (07:21)
[2024-11-26] MEDS ORDERED: KETAMINE HCL IN 0.9 % NACL 50 MG/5 ML SYRINGE ONE (07:32)
[2024-11-26] MEDS ORDERED: LIDOCAINE 1% INJ 10MG/ML (20 ML MDV) ONE (07:32)
[2024-11-26] MEDS ORDERED: MORPHINE SULFATE (PF) 0.3 MG/0.3 ML SYR ONE (07:32)
[2024-11-26] MEDS ORDERED: GLYCOPYRROLATE 0.2 MG/ML 2 ML VIAL ONE (07:32)
[2024-11-26] MEDS ORDERED: KETOROLAC 15 MG/ML 1 ML VIAL ONE (07:32)
[2024-11-26] MEDS ORDERED: NEOSTIGMINE 1 MG/ML 10 ML VIAL ONE (07:32)
[2024-11-26] MEDS ORDERED: SUCCINYLCHOLINE CHLORIDE 200 MG/10 ML VIAL IV ONE (07:32)
[2024-11-26] MEDS ORDERED: PROPOFOL 10 MG/ML 20 ML VIAL IV ONE (07:32)
[2024-11-26] MEDS ORDERED: ROCURONIUM 10 MG/ML (5 ML VIAL) IV ONE (07:32)
[2024-11-26] MEDS ORDERED: fentaNYL (PF) 50 MCG/ML 2 ML AMP ONE (07:32)
[2024-11-26] MEDS ORDERED: diphenhydrAMINE 50 MG/ML 1 ML VIAL ONE (07:32)
[2024-11-26] MEDS: SCOPOLAMINE 1 MG/72 HR PATCH TRANSDERM ONE (07:35)
--- NOTE | 2024-11-26 07:41 | P.HPIHPCON ---
History of Present Illness H&P Date: 11/26/24 Chief Complaint: Abnormal Uterine Bleeding Ms. Lazo is a 29 year old female with abnormal uterine bleeding who presents for surgical management with Robotic Assisted Total Laparoscopic Hysterectomy, Bilateral Salpingecomty, and Diagnostic Cystoscopy. Uterus is retroverted and measured 9 x 6 x 4 centimeters. Consent for Procedure: I have explained the operation/procedure to the patient, including the risks, benefits, side effects, alternative therapies (including not receiving the proposed treatment or service), the likelihood of the patient achieving his/her goals, and potential recuperation problems for the procedure/sedation/analgesia, as well as any blood products, if indicated. I also explained to the patient the risks, benefits and side effects of the alternatives, as well as the risks related to not receiving the proposed procedure, care, treatment, or services. 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 History of Any Multi-Drug Resistant Organisms: None Reported Past Surgical History: Section Additional Past Surgical History / Comment(s): jaw reconstructive surgery, Past Anesthesia/Blood Transfusion Reactions: No Reported Reaction Smoking Status: Former smoker - Past Family History Father Family Medical History: No Reported History Medications and Allergies Home Medications Medication Instructions Recorded Confirmed Type Albuterol Inhaler [Ventolin Hfa 2 puff INHALATION RT-Q6H PRN 07/14/21 11/26/24 History Inhaler] Dextroamphetamine/Amphetamine 10 mg PO DAILY 11/21/24 11/26/24 History [Adderall] Semaglutide [Wegovy] 1 mg SQ WEEKLY 11/21/24 11/26/24 History busPIRone HCL [Buspirone HCl] 10 mg PO DAILY 11/21/24 11/26/24 History Allergies Allergy/AdvReac Type Severity Reaction Status Date / Time Penicillins Allergy Unknown Verified 11/26/24 06:41 Surgical - Exam Vital Signs Temp Pulse Resp BP Pulse Ox 97.9 F 77 18 139/82 99 11/26/24 06:54 11/26/24 06:54 11/26/24 06:54 11/26/24 06:54 11/26/24 06:54 Focused physical exam is performed. The patient is in no apparent distress, breathing is non-labored. Abdomen soft, non-tender. Extremities are non-tender and non-edematous. Assessment and Plan Assessment: 29 year old with AUB presenting for surgical management with Robotic Assisted Total Laparoscopic Hysterectomy, Bilateral Salpingectomy, and Diagnostic Cystoscopy Plan: Risks, benefits, and alternatives of the procedures are discussed with the patient including risk of bleeding, infection, damage to surrounding structures including bladder/bowel/ureters, laparotomy, and post-operative VTE. The patient understands these risks and desires to proceed with surgery as discussed.
[2024-11-26] MEDS: BUPIVACAINE (PF) 0.25% 30 ML VIAL SQ ONE ×2 (08:01→08:55)
[2024-11-26] MEDS: LACTATED RINGERS 1,000 ML IV ONE (08:32)
[2024-11-26] MEDS ORDERED: SIMETHICONE 80 MG CHEWABLE PO PRN (09:02)
--- NOTE | 2024-11-26 10:07 | P.OP ---
Date of Procedure: 11/26/24 Preoperative Diagnosis: 1. Abnormal Uterine Bleeding 2. Dysmenorrhea Postoperative Diagnosis: Same Procedure(s) Performed: Robotic Assisted Total Laparoscopic Hysterectomy, Bilateral Salpingectomy, and Diagnostic Cystoscopy Implants: None Anesthesia: TIA Surgeon: Chandni Lloyd Agile Coach #1: John Galicia Estimated Blood Loss (ml): 50 IV fluids (ml): 1,000 Urine output (ml): 25 (yellow) Pathology: other (cervix, uterus, bilateral fallopian tubes) Condition: stable Disposition: floor Indications for Procedure: Ms. Lazo is a 29 year old who presents for RATLH, BS, Cystoscopy for AUB and dysmenorrhea. She understands the risks of bleeding, infection, damage to surrounding structures including bladder/bowel/ureters, and post-operative VTE. She desires to proceed with surgery after counseling about these risks. Operative Findings: Omental fat hernia of the ventral wall. Normal appearing uterus, bilateral fallopian tubes, and ovaries. Description of Procedure: Prior to the beginning of the procedure, the team paused to verify the patient's identity, the procedure to be performed (in accordance with the consent,) and the correct side/site. The patient was positioned appropriately. All relevant images and results were properly labeled and displayed. We addressed antibiotic prophylaxis and fluids for irrigation as applicable to this patient. Any safety precautions were addressed. The patient was taken to the operating room where general anesthesia was induced without difficulty. She was then positioned in the dorsal lithotomy position in Loyd stirrups. Positioning included placing her arms at her sides. After the patient was placed in what was felt to be a neurologically safe position, deep Trendelenburg position was tested prior to the operative procedure, to ensure that she would not move on the operating table. The patient was then prepped and draped in the normal sterile fashion for a combined abdominovaginal surgery. A Horton catheter was placed in the bladder for continuous drainage. Uterus was sounded to 10 cm. Intercom-Care manipulator was placed in the uterus for manipulation. Attention was then placed to the abdomen. The normal length Veress needle was introduced into the abdominal cavity while tenting the abdominal wall. Low pressure was noted confirming appropriate placement. The abdomen was then insufflated to 15mmHg for the remainder of the case. The Veress needle was removed, and an 8 mm port was placed at the umbilical site under direct laparscopic visualization and there was no evidence of injury from the trocar placement. Visualization of the intraabdominal cavity showed normal pelvic anatomy without evidence of adhesions. The port sites for the remainder of the case were then measured out and placed under direct visualization. On the left side, one 8 mm robotic assist port and one 10 mm assist port were placed. On the right side, one 8 mm robotic port was placed. The [employer] robot was then brought to the operative field in a lateral docking style to the left of the patient and the robot was docked to the ports. All robotic instruments were brought into the pelvis under direct visualization with monopolar scissors in arm #3 and vessel sealer in arm #1. The omental hernia was reduced for better visualization with the monopolar scissors. Bilateral ureters were visualized prior to starting the surgery. The right uteroovarian ligement was cauterized and cut. The right round ligament was cauterized and cut. Broad ligament was opened and bladder flap created. This was repeated on the left side with a portion of the left tube being removed at that time with the vessel sealer. The peritoneum of the bilateral broad ligaments was then taken down and monopolar cautery used to skeletonize the uterine arteries bilaterally. During the course of this dissection, the anterior leaf of the broad ligament was also taken down over the anterior aspect of the uterus and cervix to create a bladder flap. The bladder was then dissected off the cervix and upper vagina with the monopolar scissors and gentle blunt dissection. The bilateral uterine arteries were then cauterized and divided at the level of the internal cervical os. The monopolar cautery was used to incise the vaginal cuff. The uterus, along with the cervix was removed vaginally. Cuff was closed in with 0-Stratifix sutures. Surgicel powder was placed along the pedicles and vaginal cuff for bleeding prophylaxis. Excellent hemostasis was noted at this time. A 70 degree cystoscopy was performed which confirmed no suture placement within the bladder, no trauma to the bladder. Good efflux was noted from both ureteric orifices. The robot was undocked from the trocars and brought out of the operative field. The remainder of the ports were removed, and the gas was allowed to escape. All skin incisions were infiltrated with lidocaine and closed with 4-0 Monocryl and dermabond. Hemostasis was noted to be excellent throughout, and final sponge, instrument, and needle count was noted to be correct. The patient was moved back to the preoperative holding area in stable condition having tolerated the procedure well.
[2024-11-26] MEDS: NALBUPHINE 10 MG/ML (10 ML MDV) IV PRN (12:58)
[2024-11-26] MEDS: IBUPROFEN 800 MG TAB PO SCH (13:10)
[2024-11-26] MEDS: ACETAMINOPHEN TAB 500 MG TAB PO SCH (17:36)
[2024-11-27 02:50] LABS: Basophils # (A) 0.1 k/uL (0-0.2); Basophils % (A) 0 %; Eosinophils # (A) 0.1 k/uL (0-0.7); Eosinophils % (A) 1 %; HCT 33.1 % (34.0-46.0); HGB 10.6 gm/dL (11.4-16.0); Lymphocytes # (A) 3.8 k/uL (1.0-4.8); Lymphocytes % (A) 28 %; MCHC 32.1 g/dL (31.0-37.0); Mean Platelet Volume 7.4; Monocytes # (A) 0.6 k/uL (0-1.0); Monocytes % (A) 4 %; Neutrophils # (A) 9.1 k/uL (1.3-7.7); Neutrophils % (A) 66 %; Platelet Count 293 k/uL (150-450); RBC 4.08 m/uL (3.80-5.40); RDW 13.7 % (11.5-15.5); WBC 13.8 k/uL (3.8-10.6)
--- NOTE | 2024-11-27 07:01 | P.DS ---
Providers Date of admission: 11/26/24 Expected date of discharge: 11/27/24 Attending physician: Chandni Lloyd MD Primary care physician: [facility] Hospital Course: Ms. Lazo is a 29 year old POD#1 s/p RATLH, BS, and Diagnostic Cystoscopy without complications. She is feeling well this morning and desires discharge home. The patient is doing well this morning and had no acute events overnight. She has no complaints this morning. She reports minimal vaginal bleeding, passing flatus, voiding without difficulty, ambulating, and eating/drinking without nausea or vomiting. She denies chest pain, shortness of breathing, f daxa, or chills overnight. She denies pain or swelling in the legs. Postoperative restrictions are reviewed with the patient including pelvic rest for 6 weeks, no lifting heavier than 15 pounds for 6 weeks. The patient is encouraged to call the office if she experiences any heavy bleeding, foul- smelling discharge, or any if she has any other concerns. She will follow up in the office with in 2 weeks for postoperative exam. All questions are answered. Patient Condition at Discharge: Good Plan - Discharge Summary Discharge Rx Participant: Yes New Discharge Prescriptions: New Docusate [Colace] 100 mg PO BID PRN #60 capsule PRN Reason: Constipation Acetaminophen Tab [Tylenol] 650 mg PO Q6H PRN #30 tab PRN Reason: Mild Pain (Scale 1 To 3) Ibuprofen [Motrin] 600 mg PO Q6HR PRN #30 tab PRN Reason: Mild Pain (Scale 1 To 3) No Action Albuterol Inhaler [Ventolin Hfa Inhaler] 2 puff INHALATION RT-Q6H PRN PRN Reason: Shortness Of Breath Dextroamphetamine/Amphetamine [Adderall] 10 mg PO DAILY Semaglutide [Wegovy] 1 mg SQ WEEKLY busPIRone HCL [Buspirone HCl] 10 mg PO DAILY Discharge Medication List Albuterol Inhaler [Ventolin Hfa Inhaler] 2 puff INHALATION RT-Q6H PRN 07/14/21 [History] Dextroamphetamine/Amphetamine [Adderall] 10 mg PO DAILY 11/21/24 [History] Semaglutide [Wegovy] 1 mg SQ WEEKLY 11/21/24 [History] busPIRone HCL [Buspirone HCl] 10 mg PO DAILY 11/21/24 [History] Acetaminophen Tab [Tylenol] 650 mg PO Q6H PRN #30 tab 11/27/24 [Rx] Docusate [Colace] 100 mg PO BID PRN #60 capsule 11/27/24 [Rx] Ibuprofen [Motrin] 600 mg PO Q6HR PRN #30 tab 11/27/24 [Rx] Follow up Appointment(s)/Referral(s): Chandni Lloyd MD [STAFF PHYSICIAN] - 2 Weeks Activity/Diet/Wound Care/Special Instructions: Postoperative Instructions 1. No heavy lifting or straining (exercising) until after 6 week checkup. 2. Do not resume sexual relations for 6 weeks or longer if uncomfortable. 3. Keep abdominal incision clean and dry: You may wear a dressing if more comfortable. 4. Keep any areas repaired with stitches clean and dry. 5. Call the office, , within the next week to make appointment for your 2 week checkup 6. Report any of the following occurrences to the doctor promptly: a. Heavy, excessive bleeding b. Chills, fever c. Burning or frequency of urination d. Pain or redness around the incisions Discharge Disposition: HOME SELF-CARE
[2024-11-27 07:48] VITALS: BP 112/75; PULSE 75; RESP 16; TEMP 98.4
--- NOTE | 2024-11-27 07:49 | P.PN ---
Progress Note - Text Progress Note Date: 11/27/24 (934) Anesthesia Postop day 1 Subjective: Status Post robotic vaginal hysterectomy with Duramorph. Patient seen and examined. Doing well without complaint. VAS 0. No nausea or vomiting. Mild pruritus tolerable.. Denies fever. Gross lower extremity strength intact. Without apparent anesthetic complications. Objective: Vital signs reviewed Heart: Regular Rate Lungs: Good chest excursion Abdomen: Appears nondistended Assessment: Status post robotic vaginal hysterectomy with Duramorph postop day 1 Plan: 1. Continue current care with your medical management. Anticipated end to the duration of the Duramorph around surgery time today. You may see increased pain needs around this time. 2. This note was dictated using [employer] software. Please be advised there is a potential for misspellings or errors in air conditioning service technician.
--- NOTE | 2024-11-28 11:14 | P.ANPRN ---
Procedure Note - Anesthesia - Epidural/Spinal Spinal Time Out Performed: Yes Date of Procedure: 11/26/24 Procedure Start Time: 07:06 Procedure Stop Time: 07:12 Location of Patient: PreOp Indication: Acute Post-Operative Pain Sedation Type: Sedate with meaningful contact maintained Preparation: Sterile Prep Position: Sitting Needle Guage: 25 Blood Aspirated: No Pain Paresthesia on Injection Noted: No Events: Uneventful and Well Tolerated (Duramorph mics plus fentanyl 25 mics given intrathecally)
== END 2024-11-27 11:30 | disposition home or self-care (01) ==
LOC: OR 05:54 → 4FBP 09:05 → OR 11-27 11:30
PROVIDERS: ATTEND Obstetrics & Gynecology
DX: N72 Inflammatory disease of cervix uteri (principal); N87.9 Dysplasia of cervix uteri, unspecified; N88.8 Other specified noninflammatory disorders of cervix uteri; G89.18 Other acute postprocedural pain; J45.909 Unspecified asthma, uncomplicated; K43.9 Ventral hernia without obstruction or gangrene; Z79.85 Long-term (current) use of injectable non-insulin antidiabetic drugs; Z79.899 Other long term (current) drug therapy; Z87.891 Personal history of nicotine dependence; Z86.32 Personal history of gestational diabetes; Z88.0 Allergy status to penicillin
CPT/HCPCS: 58571; S2900; 81025; 85025; 88307; 88309